=== PATIENT | female | born 1995 | race Caucasian/White ===

== ENCOUNTER 2016-11-23 11:29 | Inpatient (IN) ==
[~2016-11-23 11:29] MED LIST: Famotidine 20 MG/2 ML VIAL IVP PRN; Lidocaine 1% 20 ML MDV INFILT PRN; Naloxone 0.4 MG/ML INJ IVP PRN; Ondansetron 4 MG/2 ML VIAL IVP PRN
[2016-11-23] MEDS ORDERED: Ringers Solution, Lactated 1,000 ML IVC SCH (11:30)
[2016-11-23] MEDS ORDERED: Oxytocin 20 units/ LR 1000 mL 20 UNIT/1,000 ML BAG IVC ONE ×2 (11:58→19:02)
[2016-11-23] MEDS ORDERED: Lidocaine 1% 20 ML MDV ONE (12:13)
[2016-11-23 12:17] LABS: Basophils # 0.1 K/mcL (0.0-0.2); Basophils % 0.4 %; Eosinophils % 0.1 %; Hematocrit 37.6 % (35.3-44.9); Hemoglobin 12.8 g/dL (11.5-15.4); Immature Granulocytes % 1.4 % (0-4); Lymphocytes # 2.1 K/mcL (0.6-4.6); Lymphocytes % 9.3 %; Mean Corpuscular Hemoglobin 30.1 pg (28.0-33.3); Mean Corpuscular Volume 88.5 fL (83.0-100.0); Mean Platelet Volume 9.9 fL (9.4-12.4); Monocytes # 0.8 K/mcL (0.0-1.3); Monocytes % 3.8 %; Neutrophils # 18.7 K/mcL (1.6-8.9); Platelet Count 251 K/mcL (140-400); Red Blood Count 4.25 M/mcL (3.82-4.97); Red Cell Distribution Width 13.2 % (11.5-14.5)
--- NOTE | 2016-11-23 12:42 | OB/GYN Procedure Note ---
Delivery - Delivery Date: 11/23/16 Provider: Divya Bautista Intrapartum events: meconium, precipitous labor- <3hr Delivery induction: none Delivery monitor: external FHT, external uterine Anesthesia: none Estimated Blood Loss: 200 - (s) Infant A Delivery Date: 11/23/16 Delivery Time: 12:41 Presentation: vertex Position: FELICIA Route of delivery: Gender: Female Viability: Viable Pounds: 7 Ounces: 14 Weight Gram: 3545 kg at 1 minute: 8 at 5 mins: 9 Shoulder Dystocia: not encountered Specimens collected: cord blood Placenta: spontaneous Cord: 3 umbilical vessels - Repair Episiotomy: none Laceration Description: Periurethral (hemostatic), Superficial (hemostatic - posterior vaginal wall x 2) - Complications Delivery complications: none Delivery comments: Patient progressed to complete and began spontaneously bearing down to of vigorous female in the FELICIA position. Meconium stained fluid noted at SROM. No shoulder and no nuchal cord encountered. placed onto maternal abdomen and cord double clamped and cut immediately. taken to prewarmed radiant warmer to the NICU team for meconium stained fluid. Apgars 8 and 9 at one and five minutes of age respectively. Placenta delivered spontaneously; appears grossly intact with 3 vessel cord. Upon inspection, there are two superficial lacerations in the posterior vagina and one hemostatic left periurethral laceration noted. The lacerations were all noted to be hemostatic and left to heal by second intention. EBL 200mL. Uterus firm, midline, and 3 fingerbreadths below the umbilicus. Dr Mishra notified. - Disposition Mom disposition: stable in LDR [place] disposition: stable in LDR
--- NOTE | 2016-11-23 12:53 | OB/GYN History & Physical ---
Date of Encounter: 11/23/16 Time of Encounter: 12:49 Assessment and Plan (1) 39 weeks gestation of Current visit: Yes Status: Acute Admit for labor GBS positive - delivered prior to dosing of PCN Dr Mishra aware of patient's arrival History of Present Illness Chief complaint: Labor HPI: Ms. Major is a 21 year old at 39 weeks and 6 days gestation that presents to labor and delivery with c/o contractions less than every 5 minutes that began around 5am this morning. She states positive movement. She denies headache, vision changes, epigastric pain, vaginal bleeding, and vaginal discharge. She is seen by Dr Gonzalez for care. She does smoke cigarettes. Her has been uncomplicated and she denies problems with her previous . She is GBS positive HIV negative, RPR negative, Hep B negative, Rubella immune, Varicella immune, and blood type is O+. Past Med Surg Social Fam HX - Past Medical History Medical history: no medical history Psychiatric history: anxiety - Past Surgical History Surgical History: other - Social History Smoking Status: Current every day smoker Packs per day: 1/2 Smokeless Tobacco Status: No Alcohol use: occasionally Drug use: none Obstetrical History - Pregnancies : 2 Para: 1 Term: 1 : 0 Ab's: 0 Livin Medications and Allergies Azithromycin [Azithromycin 6-Tab Pack] 250 mg PO DAILY #6 tab 03/14/15 [Rx] Fluticasone Propionate Nasal [Flonase] 1 spray NS DAILY #1 bottle 03/14/15 [Rx] Loratadine/Pseudophed (12 HR) [Claritin D (12HR)] 1 each PO BID #20 tab.er.12h 03/14/15 [Rx] Ibuprofen [Motrin] 600 mg PO Q8HR PRN #30 tablet 06/15/15 [Rx] cephALEXin [Keflex] 500 mg PO QID #40 capsule 04/13/16 [Rx] 3 Allergy/AdvReac Type Severity Reaction Status Date / Time No Known Allergies Allergy Verified 08/02/16 18:13 Review of System OB All systems PM: reviewed and no additional remarkable complaints except as stated Exam - Constitutional Constitutional: well developed, well nourished, no acute distress, average body habitus - HEENT HEENT: Normocephaly, Mucus Membranes Moist - Neck Neck exam: full ROM - Lungs Respiratory exam: CTAB - Cardiovascular Cardiovascular exam: RRR, +S1, +S2 - Abdomen Abdomen: Present: bowel sounds normal, gravid, non tender - Extremities Extremities exam: normal capillary refill, normal inspection, radial pulses palpable and symmetrical - Vulva Vulva: bilateral: normal - Vagina Vagina: Present: normal moisture - Cervix Dilation: 7 (7-8) Effacement: 90 Station: -1 - Uterus Uterus exam: Present: normal size, normal contour - Anus/Rectum Anus/Rectum: Present: normal perianal skin Results Result Diagrams: 11/23/16 12:00 Abnormal lab results WBC 22.0 K/mcL (4.3-11.1) H 11/23/16 12:00 Neutrophils # 18.7 K/mcL (1.6-8.9) H 11/23/16 12:00 All other labs normal. - VTE Reasons for not Prescribing Prophylaxis: Treatment not Indicated - Low risk for VTE
[2016-11-23 15:56] LABS: Amphetamine Screen,Urine Negative ng/mL (Cutoff=1000); Barbiturate Screen,Urine Negative ng/mL (Cutoff=200); Benzodiazepines Screen,Urine Negative ng/mL (Cutoff=200); Cannabinoid Screen,Urine Positive ng/mL (Cutoff = 50); Cocaine Screen,Urine Negative ng/mL (Cutoff= 300); Opiate Screen,Urine Negative ng/mL (Cutoff=300); Phencyclidine Screen,Urine Negative ng/mL (Cutoff=25)
[2016-11-23] MEDS ORDERED: Acetaminophen 325 MG TABLET PO PRN (19:02)
[2016-11-23] MEDS ORDERED: Sennosides 8.6 MG TABLET PO PRN (19:02)
[2016-11-23] MEDS ORDERED: Lanolin 7 G OINT...G. TP PRN (19:02)
[2016-11-23] MEDS ORDERED: Ibuprofen 600 MG TABLET PO PRN (19:02)
[2016-11-23] MEDS ORDERED: Oxytocin 20 units/ LR 1000 mL 20 UNIT/1,000 ML BAG IVC SCH (19:02)
[2016-11-23] MEDS ORDERED: Benzocaine/Menthol 56 GM AEROSOL SPRAY TP PRN (19:02)
[2016-11-23] MEDS ORDERED: Measles/Mumps/Rubella Vacc 0.5 ML VIAL SQ PRN (19:02)
[2016-11-24] MEDS ORDERED: Prenatal Vit/FA 1 EACH TABLET PO SCH (09:00)
[2016-11-24 10:33] VITALS: BP 125/82
--- NOTE | 2016-11-24 10:35 | Discharge Summary ---
Date of Encounter: 11/24/16 Time of Encounter: 10:35 - Discharge Diagnosis (1) (normal spontaneous vaginal delivery) Priority: Primary Status: Acute Comments: Doing well without c/o. Appropriate lochia and cramping. - Discharge Medications Prescriptions: Ibuprofen [Motrin] 600 mg PO Q6HR PRN #40 tablet PRN Reason: Mild To Moderate Pain Home Medications: Azithromycin [Azithromycin 6-Tab Pack] 250 mg PO DAILY #6 tab 03/14/15 [Rx] Fluticasone Propionate Nasal [Flonase] 1 spray NS DAILY #1 bottle 03/14/15 [Rx] Loratadine/Pseudophed (12 HR) [Claritin D (12HR)] 1 each PO BID #20 tab.er.12h 03/14/15 [Rx] Ibuprofen [Motrin] 600 mg PO Q8HR PRN #30 tablet 06/15/15 [Rx] cephALEXin [Keflex] 500 mg PO QID #40 capsule 04/13/16 [Rx] Ibuprofen [Motrin] 600 mg PO Q6HR PRN #40 tablet 11/24/16 [Rx] Allergies/Adverse Reactions: 3 Allergy/AdvReac Type Severity Reaction Status Date / Time No Known Allergies Allergy Verified 08/02/16 18:13 Data Procedures and tests throughout hospitalization: Laboratory Tests 11/23/16 11/23/16 12:00 15:29 WBC 22.0 H RBC 4.25 Hgb 12.8 Hct 37.6 MCV 88.5 MCH 30.1 MCHC 34.0 RDW 13.2 Plt Count 251 MPV 9.9 Immature Gran % 1.4 Seg Neutrophils % 85.0 Lymphocytes % 9.3 Monocytes % 3.8 Eosinophils % 0.1 Basophils % 0.4 Neutrophils # 18.7 H Lymphocytes # 2.1 Monocytes # 0.8 Eosinophils # 0.0 Basophils # 0.1 Urine Opiates Screen Negative Ur Barbiturates Screen Negative Ur Phencyclidine Scrn Negative Ur Amphetamines Screen Negative U Benzodiazepines Scrn Negative Urine Cocaine Screen Negative U Marijuana (THC) Screen Positive H Labs on day of discharge: Labs from last 24 hours 11/23/16 11/23/16 15:29 12:00 WBC 22.0 H RBC 4.25 Hgb 12.8 Hct 37.6 MCV 88.5 MCH 30.1 MCHC 34.0 RDW 13.2 Plt Count 251 MPV 9.9 Immature Gran % 1.4 Seg Neutrophils % 85.0 Lymphocytes % 9.3 Monocytes % 3.8 Eosinophils % 0.1 Basophils % 0.4 Neutrophils # 18.7 H Lymphocytes # 2.1 Monocytes # 0.8 Eosinophils # 0.0 Basophils # 0.1 Urine Opiates Screen Negative Ur Barbiturates Screen Negative Ur Phencyclidine Scrn Negative Ur Amphetamines Screen Negative U Benzodiazepines Scrn Negative Urine Cocaine Screen Negative U Marijuana (THC) Screen Positive H - Impressions Doing well without c/o. Appropriate lochia and cramping. Date of admission: 11/23/16 11:29 Primary care physician: PCP NONE Consults: 11/23/16 19:02 Consult to Welding Machine Setter [CONS] Routine Comment: Vaginal delivery, consult needed - Patient Status Disposition: Home, Self-Care Condition: Good Functional capacity at discharge: independent ambulation Overall status at discharge: patient is progressing back to baseline - Discharge Instructions - Diet and Activity Activity: increase activity as tolerated Diet: advance to your usual diet Hospital Course PRODUCT MANAGEMENT MANAGER Time Attestation: Total time spent providing and/or coordinating discharge services: Exam - Constitutional Vitals: Temp Pulse Resp BP Pulse Ox 97.6 F 73 16 132/82 99 11/24/16 05:00 11/24/16 05:00 11/24/16 05:00 11/24/16 05:00 11/24/16 05:00 General appearance IM: A&O X 3 - Respiratory Respiratory exam: Present: CTAB - Cardiovascular Cardiovascular exam IM: Present: RRR - GI/Abdominal GI/Abdominal exam IM: normal bowel sounds - Uterus Position: 2 Fingers Below Umbilicus - Extremities Exam Extremities exam IM: Present: full ROM - Neurological Exam Neurological exam: oriented X3 - VTE Reasons for not Prescribing Prophylaxis: Treatment not Indicated - Low risk for VTE
== END 2016-11-24 16:48 | disposition home or self-care (01) | DRG 560 ==
LOC: 1NENULAB → 1NENUOBS 15:55
PROVIDERS: ADMIT Student in an Organized Health Care Education/Training Program; ATTEND Obstetrics & Gynecology

== ENCOUNTER 2019-11-28 18:19 | Inpatient (IN) ==
[2019-11-28 19:02] LABS: Amphetamine Screen,Urine Positive ng/mL (Cutoff=1000); Barbiturate Screen,Urine Negative ng/mL (Cutoff=200); Benzodiazepines Screen,Urine Negative ng/mL (Cutoff=200); Cannabinoid Screen,Urine Positive ng/mL (Cutoff = 50); Cocaine Screen,Urine Negative ng/mL (Cutoff= 300); Opiate Screen,Urine Negative ng/mL (Cutoff=300); Phencyclidine Screen,Urine Negative ng/mL (Cutoff=25)
[2019-11-28 19:24] LABS: Basophils % 0.5 %; Eosinophils # 0.1 K/mcL (0.0-0.6); Eosinophils % 1.9 %; Hematocrit 39.6 % (35.3-44.9); Hemoglobin 12.8 g/dL (11.5-15.4); Immature Granulocytes % 0.2 % (0-4); Lymphocytes # 2.6 K/mcL (0.6-4.6); Lymphocytes % 45.8 %; Mean Corpuscular HGB Conc 32.3 g/dL (31.6-35.5); Mean Corpuscular Hemoglobin 28.6 pg (28.0-33.3); Mean Corpuscular Volume 88.6 fL (83.0-100.0); Mean Platelet Volume 8.8 fL (9.4-12.4); Monocytes # 0.4 K/mcL (0.0-1.3); Monocytes % 6.5 %; Neutrophils # 2.6 K/mcL (1.6-8.9); Platelet Count 265 K/mcL (140-400); Red Blood Count 4.47 M/mcL (3.82-4.97); Red Cell Distribution Width 13.8 % (11.5-14.5); Segmented Neutrophils % 45.1 %; White Blood Count 5.7 K/mcL (4.3-11.1)
[2019-11-28 19:42] LABS: Acetaminophen < 10 mcg/mL (10-20); BUN/Creatinine Ratio 16 (6-26); Blood Urea Nitrogen 13 mg/dL (6-20); Calcium 9.2 mg/dL (8.6-10.3); Carbon Dioxide 28 mEq/L (23-29); Chloride 106 mEq/L (98-107); Ethanol < 10 mg/dL (Less than 10); Glucose 116 mg/dL (70-105); Osmolality,Calculated 287 (280-300); Potassium 4.1 mEq/L (3.5-5.1); Salicylate < 2.5 mg/dL (15.0-30.0); Sodium 138 mEq/L (136-145); eGFR For African Americans > 60 (> 60); eGFR For Non-African Americans > 60 (> 60)
[2019-11-28 19:54] LABS: Platelet Estimate Normal (Normal); Reactive Lymphocytes Present (Not Present)
[2019-11-28 20:18] LABS: Bilirubin,Urine Negative (Negative); Blood,Urine Negative (Negative); Clarity,Urine Turbid (Clear); Color,Urine Yellow (Yellow); Glucose,Urine (UA) Normal (Normal); Ketones,Urine Negative (Negative); Leukocyte Esterase,Urine Trace (Negative); Nitrite,Urine Negative (Negative); Protein,Urine Trace mg/dL (Neg-Trace); Specific Gravity,Urine 1.026 (1.010-1.025)
[2019-11-28 20:26] LABS: Squamous Epithelial Cell,Urine Many per hpf (None-Few)
[2019-11-28 20:27] LABS: RBC,Urine 0-3 per hpf (0-3)
[2019-11-28 20:28] LABS: Bacteria,Urine Few per hpf (None-Few)
[2019-11-28 20:35] LABS: Alanine Aminotransferase 321 Units/L (7-52); Albumin 3.8 g/dL (3.5-5.7); Albumin/Globulin Ratio 1.3 (1.1-2.2); Alkaline Phosphatase 71 Units/L (34-104); Aspartate Amino Transferase 180 Units/L (13-39); Bilirubin,Direct 0.1 mg/dL (0.0-0.2); Bilirubin,Indirect 0.3 mg/dL (0.0-1.0); Bilirubin,Total 0.4 mg/dL (0.3-1.0); Globulin 2.9 g/dL (2.4-3.5); Total Protein 6.7 g/dL (6.4-8.9)
[2019-11-28 20:56] LABS: Hepatitis B Surface Antigen Nonreactive (Nonreactive)
[2019-11-28 21:25] LABS: Hepatitis B Core IgM Nonreactive (Nonreactive)
[2019-11-28 21:26] LABS: Hepatitis A Antibody IgM Nonreactive (Nonreactive)
[2019-11-28] MEDS ORDERED: Acetaminophen 325 MG TABLET PO PRN (21:43)
[2019-11-28] MEDS ORDERED: Mag Hydrox/Al Hydrox/Simeth 30 ML UDC PO PRN (21:43)
[2019-11-28] MEDS ORDERED: QUEtiapine Fumarate 25 MG TABLET PO PRN (21:43)
[2019-11-28] MEDS ORDERED: *HR* LORazepam 1 MG TABLET PO PRN (21:43)
[2019-11-28] MEDS ORDERED: haloperidoL 5 MG TABLET PO PRN (21:43)
[2019-11-28] MEDS ORDERED: *HR* LORazepam 2 MG/ML VIAL IM PRN (21:43)
[2019-11-28] MEDS ORDERED: Haloperidol Lactate 5 MG/ML VIAL IM PRN (21:43)
[2019-11-28] MEDS ORDERED: MOM Conc 10 ML UD.LIQ PO PRN (21:43)
[2019-11-28 23:02] LABS: Hepatitis C Virus Antibody Reactive (Nonreactive)
[2019-11-29] MEDS: Nicotine 21 MG PATCH.TD24 TD SCH (08:42)
[2019-11-29] MEDS ORDERED: Ibuprofen 800 MG TABLET PO PRN (09:25)
[2019-11-29] MEDS: ARIPiprazole 5 MG TABLET PO SCH (10:55)
[2019-11-29] MEDS: hydrOXYzine pamoate 25 MG CAPSULE PO PRN (19:41)
[2019-11-30 09:20] VITALS: BP 118/75
[2019-11-30] MEDS: ARIPiprazole 5 MG TABLET PO SCH (09:23)
[2019-11-30] MEDS: Nicotine 21 MG PATCH.TD24 TD SCH (09:23)
[2019-11-30] MEDS: hydrOXYzine pamoate 25 MG CAPSULE PO PRN (15:10)
== END 2019-11-30 15:45 | disposition home or self-care (01) | DRG 753 ==
LOC: EMEROOARM 18:19 → 1ANU 21:41
PROVIDERS: ADMIT Psychiatry & Neurology Psychiatry; ATTEND Psychiatry & Neurology Psychiatry

== ENCOUNTER 2021-09-22 11:30 | Observation (INO) ==
[2021-09-22] MEDS ORDERED: 0.9 % Sodium Chloride 1,000 ML IVC ONE (13:00)
[2021-09-22] MEDS ORDERED: Acetaminophen 325 MG TABLET PO ONE (13:00)
[2021-09-22 13:59] LABS: Basophils % 0.4 %; Eosinophils # 0.1 K/mcL (0.0-0.6); Eosinophils % 1.3 %; Hematocrit 36.3 % (35.3-44.9); Hemoglobin 11.9 g/dL (11.5-15.4); Immature Granulocytes % 0.4 % (0-4); Lymphocytes # 1.8 K/mcL (0.6-4.6); Lymphocytes % 18.3 %; Mean Corpuscular HGB Conc 32.8 g/dL (31.6-35.5); Mean Corpuscular Hemoglobin 29.2 pg (28.0-33.3); Mean Corpuscular Volume 89.2 fL (83.0-100.0); Mean Platelet Volume 9.1 fL (9.4-12.4); Monocytes # 0.5 K/mcL (0.0-1.3); Monocytes % 4.9 %; Neutrophils # 7.5 K/mcL (1.6-8.9); Platelet Count 257 K/mcL (140-400); Red Blood Count 4.07 M/mcL (3.82-4.97); Red Cell Distribution Width 13.4 % (11.5-14.5); Segmented Neutrophils % 74.7 %; White Blood Count 10.1 K/mcL (4.3-11.1)
[2021-09-22 14:11] LABS: INR 1.1; Prothrombin Time 11.8 Seconds (9.4-12.1)
[2021-09-22 14:14] LABS: Activated Partial Thrombo Time 34.7 Seconds (26.0-36.0)
[2021-09-22 14:22] LABS: Alanine Aminotransferase 49 Units/L (7-52); Albumin 3.8 g/dL (3.5-5.7); Albumin/Globulin Ratio 1.4 (1.1-2.2); Alkaline Phosphatase 47 Units/L (34-104); Aspartate Amino Transferase 32 Units/L (13-39); BUN/Creatinine Ratio 23 (6-26); Bilirubin,Direct 0.1 mg/dL (0.0-0.2); Bilirubin,Indirect 0.3 mg/dL (0.0-1.0); Bilirubin,Total 0.4 mg/dL (0.3-1.0); Blood Urea Nitrogen 15 mg/dL (6-20); Calcium 8.7 mg/dL (8.6-10.3); Carbon Dioxide 23 mEq/L (23-29); Chloride 108 mEq/L (98-107); Globulin 2.7 g/dL (2.4-3.5); Glucose 99 mg/dL (70-105); Osmolality,Calculated 283 (280-300); Sodium 136 mEq/L (136-145); Total Protein 6.5 g/dL (6.4-8.9); eGFR For African Americans > 60 (> 60); eGFR For Non-African Americans > 60 (> 60)
[2021-09-22 14:48] LABS: Bacteria,Urine Few per hpf (None-Few); Bilirubin,Urine Negative (Negative); Blood,Urine Large (Negative); Clarity,Urine Clear (Clear); Color,Urine Light-Orange (Yellow); Glucose,Urine (UA) Normal (Normal); Ketones,Urine Negative (Negative); Leukocyte Esterase,Urine Trace (Negative); Mucus,Urine Few per lpf (None-Few); Nitrite,Urine Negative (Negative); PH,Urine 6.5 pH Units (5.0-8.0); Protein,Urine 30 mg/dL (Neg-Trace); RBC,Urine 15-30 per hpf (0-3); Specific Gravity,Urine 1.028 (1.010-1.025); Squamous Epithelial Cell,Urine Moderate per hpf (None-Few); WBC,Urine 0-3 per hpf (0-3)
[2021-09-22] MEDS ORDERED: 0.9 % Sodium Chloride 1,000 ML IVC SCH (17:00)
[2021-09-22] MEDS ORDERED: *HR* FentaNYL (PF) 100 MCG/2 ML VIAL ONE (17:30)
[2021-09-22] MEDS ORDERED: Lidocaine HCL 4 ML Topical Solution (Laryng-O-Jet Kit Sterile Pak) TP ONE (17:31)
[2021-09-22] MEDS ORDERED: *HR* Succinylcholine 200 MG/10 ML VIAL IVP ONE (17:31)
[2021-09-22] MEDS ORDERED: *HR* Rocuronium Bromide 50 MG/5 ML VIAL ONE (17:31)
[2021-09-22] MEDS ORDERED: Ondansetron 4 MG/2 ML VIAL ONE (17:31)
[2021-09-22] MEDS ORDERED: *HR* Midazolam HCl 2 MG/2 ML VIAL ONE (17:31)
[2021-09-22] MEDS ORDERED: *HR* Propofol 200 MG/20 ML VIAL IVP ONE ×2 (17:31→17:33)
[2021-09-22] MEDS ORDERED: *HR* OxyCODONE Immed Rel 5 MG TABLET PO PRN (17:43)
[2021-09-22] MEDS ORDERED: Ondansetron 4 MG/2 ML VIAL IVP PRN (17:43)
[2021-09-22] MEDS ORDERED: *HR* HYDROmorphone PF 0.5 MG/0.5 ML SYRINGE IVP PRN (17:43)
[2021-09-22] MEDS ORDERED: Lidocaine -MPF 2% 5 ML VIAL ONE (18:16)
[2021-09-22] MEDS ORDERED: Ketorolac 30 MG/ML VIAL ONE (18:37)
[2021-09-22] MEDS ORDERED: *HR* HYDROMORPHONE 2 MG/ML VIAL ONE (18:41)
[2021-09-22] MEDS ORDERED: *HR* OxyCODONE Immed Rel 5 MG TABLET ONE (19:28)
[2021-09-22] MEDS ORDERED: Acetaminophen IV 1,000 MG/100 ML BAG IVPB ONE (19:29)
[2021-09-22 19:51] VITALS: PULSE 68
[2021-09-22 22:00] VITALS: BP 120/80; TEMP 98; O2SAT 98
== END 2021-09-22 22:10 | disposition home or self-care (01) ==
LOC: EMEROOARM 11:30 → 1NENUPED 11:30 → EMEROOARM 11:30 → 1NENUPED 19:40 → EDSTATUS 21:35 → 1NENUPED 21:36
PROVIDERS: ADMIT Student in an Organized Health Care Education/Training Program; ATTEND Student in an Organized Health Care Education/Training Program